=== PATIENT | male | born 1980 | race Caucasian/White ===

== ENCOUNTER 2024-03-26 19:07 | Emergency (ER) | payer BC ==
[2024-03-26] MEDS ORDERED: Ketorolac Tromethamine 30 MG (1 mL) VIAL ONE (21:00)
[2024-03-26] MEDS ORDERED: Dexamethasone 10 MG/ML VIAL ONE (21:00)
== END 2024-03-26 21:19 | disposition home or self-care (01) ==
LOC: CSHERS 19:07
DX: M70.62 Trochanteric bursitis, left hip (principal); F17.220 Nicotine dependence, chewing tobacco, uncomplicated
CPT/HCPCS: 96372; J1100; J1885